=== PATIENT | female | born 1945 | race Caucasian/White ===

== ENCOUNTER 2017-01-04 09:13 | Outpatient (CLI) | payer MEDICARE, OTHER ==
--- NOTE | 2017-01-04 13:21 | BD ---
DEXA BONE DENSITY STUDY: History: Post-menopausal. Lumbar Spine: BMD (g/cm2) L1 0.923 T-Score: -0.6 L2 1.053 T-Score: 0.2 L3 1.043 T-Score: -0.4 L4 0.993 T-Score: -0.6 L1-L4 1.005 T-Score: -0.4 Femoral Neck: 0.638 T-Score: -1.9 Total Femur: 0.791 T-Score: -1.2 Impression: 1. Osteopenia of the left femoral neck and normal bone marrow density of the lumbar spine. 2. 10-year fracture risk from major osteoporotic fracture is 11%, hip fracture 1.9%. These fracture probabilities are calculated for an untreated patient. POS: OFF
--- NOTE | 2017-01-10 10:12 | MMO ---
BILATERAL SCREENING MAMMOGRAMS: Date: 01/04/17 Compared to outside mammogram studies dated 2016 and 2015, and studies from this institution dated 2 014. This patient's mammogram was interpreted with the assistance of computer-aided detection. FINDINGS: Predominantly fatty replacement. Scattered benign calcifications. Tiny, 3.0 mm, nodule in the product analyst ior mid left breast is stable. Recommend one year follow-up. IMPRESSION: BIRADS 2: Benign Finding(s) POS: JOVITA
--- OUTSIDE RECORDS SUMMARY | 2017-01-14 18:00 | XMS | Continuity of Care Document ---
:1945 Author Organization [facility] Care Team Providers Name Role Phone NOLOCAL, PRIMARY Primary Care Physician Unavailable Insurance Providers Payer Name Policy Number Subscriber Name Relationship MEDICARE [id number] BROOK[place]N RAMIREZ SELF/SAME PATIENT OTHER1 [id number] [employer] RAMIREZ SELF/SAME PATIENT Advance Directives Directive Response Recorded Date/Time Advance Directive? N 04/08/16 10:48am Living Will? N 04/08/16 10:48am Health Care Proxy? N 04/08/16 10:48am Healthcare Power of Canteen Operator? N 04/08/16 10:48am Is the patient an Organ Donor? N 04/08/16 10:32am Chief Complaint and Reason for Visit Reason for Visit COPD EXACERBATION Problems Active Medical Problems Problem Onset Date Recorded Date Status Hypoxemia Unknown 02/13/15 Active Pneumonia Unknown 02/13/15 Active COPD exacerbation Unknown 04/08/16 Active Medications Current Home Medications Medication Dose Units Route Directions Days/Qty Instructions Start Date ALBU 3MG/IPROT 3 ML NEB FOUR TIMES A 120 04/12/16 0.5MG/3ML (RESP DAY (0900) (DUONEB) 3 MG/5 MG NEB ASPIRIN (ASPIRIN 81 MG PO EVERY DAY @ 81 MG (LOW DOSE)) 0900 81 MG TAB Fluoxetine Hcl 20 MG PO EVERY DAY @ 30 (Pmdd) 0900 (Fluoxetine) 20 MG CAP Levofloxacin 750 MG PO EVERY DAY @ 7 Days 04/12/16 Hemihydrate 0900 (LEVAQUIN 750 MG TAB) 750 MG TAB Lisinopril 20 MG PO TWICE A DAY (ZESTRIL 20MG) 20 (0900; 2100) MG TAB Multiple Vitamin 1 TAB PO EVERY DAY @ (MULTI-VITAMIN 0900 TABLET) 1 TAB TAB Omeprazole 20 MG PO EVERY DAY @ 30 (PRILOSEC 20 MG 0900 CAP) 20 MG CAP PREDNISONE 40 MG PO EVERY DAY @ 8 Days 40 MG PO Q DAY X 02/17/15 (PREDNISONE 10 MG 0900 2 DAYS30 MG PO Q TAB) 10 MG TAB DAY X 2 DAYS20 MG PO Q DAY X 2 DAYS10 MG PO Q DAY X 2 DAYS PREDNISONE 10 MG PO EVERY DAY @ 7 Days 40 MG DAILY X 2 04/12/16 (PREDNISONE 10 MG 0900 DAYS20 MG DAILY X TAB) 10 MG TAB 2 DAYS10 MG DAILY X 2 DAYS5 MG DAILY X 1 DAY Past Home Medications Medication Directions Ordered Status Albu 3MG/Iprot 0.5MG/3ML (Resp (Duoneb) FOUR TIMES A DAY (0900) 02/17/15 Discontinued 3 Mg/5 Mg Neb Neb, 3 Ml Neb Levofloxacin Hemihydrate (Levaquin 750 EVERY DAY @ 0900 02/17/15 Discontinued Mg Tab) 750 Mg Tab Tab, 750 Mg Po Social History Problem Response Recorded Date Recreational drugs? N 04/08/16 Alcohol? N 04/08/16 Query Response Start Date Stop Date Smoking Status: Former Smoker Hospital Discharge Instructions Diagnosis: COPD Goal: IMPROVE BREATHING Intervention: BREATHING TREATMENTS, MEDICATIONS, ANTIBIOTICS Anticipated Discharge Date 04/12/16 Anticipated Discharge Time 1800 Plan of Care Discharge Date 04/12/16 Disposition HOME/SELF CARE Instructions/Education Provided DI for Chronic Obstructive Pulmonary Disease Forms Provided Patient Portal Logon Page Prescriptions See Medications Section Additional Instructions/Education F/U PCP IN 1 WEEK F/U DR. MAYERS IN 2 WEEKS Care Plan and Goals See Discharge Instructions section Functional Status Query Response Date Recorded WNL?+ Y April 12, 2016 9:00am Allergies, Adverse Reactions, Alerts No known allergies. Immunizations Name Date Given Type Flu vaccine this seaso Y Historical Estimated Date: 01/28/16 Historical Pnuemonia Vaccine last 5 years? Y Historical Estimated Date: 04/11/13 Historical Vital Signs Vital Reading Collection Date/Time Result Blood Pressure 04/12/16 4:29pm 138/69 Blood Pressure Source 04/12/16 4:00am Auto Cuff Patient Temperature 04/12/16 4:29pm 97.0 Temperature Source 04/12/16 4:00am Oral Respiratory Rate 04/12/16 4:29pm 18 Pulse Rate 04/12/16 4:29pm 78 Pulse Location 04/12/16 4:00am Monitor Bedside Pulse Oximetry 04/12/16 4:29pm 95 Height 04/08/16 10:48am 157.48 cm Height 04/08/16 10:48am 5 ft 2.00 in Weight 04/12/16 6:10am 64.155 kg Weight 04/12/16 6:10am 141 lb 7.00 oz Body Mass Index 04/08/16 10:48am 25.9 Results Laboratory Results Test Name Result Units Flags Reference Collection Result Comments Date/Time Date/Time White Blood 9.7 K/uL 4.8-10.8 04/11/16 04/11/16 Count 4:50am 5:51am Red Blood Count 4.40 M/uL 3.70-5.40 04/11/16 04/11/16 4:50am 5:51am Hemoglobin 14.1 g/dL 12.0-16.0 04/11/16 04/11/16 4:50am 5:51am Hematocrit 42.4 % 37.0-47.0 04/11/16 04/11/16 4:50am 5:51am Mean Corpuscular 96.4 fl 80.0-100.0 04/11/16 04/11/16 Volume 4:50am 5:51am Mean Corpuscular 32.1 pg H 27.0-31.0 04/11/16 04/11/16 Hemoglobin 4:50am 5:51am Mean Corpuscular 33.3 g/dL 32.0-36.0 04/11/16 04/11/16 Hgb Concent Diff 4:50am 5:51am Red Cell 13.4 % 11.5-14.5 04/11/16 04/11/16 Distribution 4:50am 5:51am Width Platelet Count 136 K/uL 130-400 04/11/16 04/11/16 4:50am 5:51am Mean Platelet 10.7 fl 04/11/16 04/11/16 Volume 4:50am 5:51am Granulocytes (%) 93.9 % H 50.0-75.0 04/11/16 04/11/16 4:50am 5:51am Lymphocytes % 3.6 % L 20.0-40.0 04/11/16 04/11/16 4:50am 5:51am Monocytes % 2.5 % 0.0-15.0 04/11/16 04/11/16 4:50am 5:51am Eosinophils % 0.0 % 0.0-10.0 04/11/16 04/11/16 4:50am 5:51am Basophils % 0.0 % 0.0-2.0 04/11/16 04/11/16 4:50am 5:51am Granulocytes # 9.1 K/uL H 1.8-6.4 04/11/16 04/11/16 4:50am 5:51am Lymphocytes # 0.3 K/uL L 1.2-3.6 04/11/16 04/11/16 4:50am 5:51am Monocytes # 0.2 K/uL L 0.3-0.9 04/11/16 04/11/16 4:50am 5:51am Eosinophils # 0.0 K/ul 0.0-0.5 04/11/16 04/11/16 4:50am 5:51am BASO # 0.0 K/uL 0.0-0.2 04/11/16 04/11/16 4:50am 5:51am Manual YES 04/11/16 04/11/16 Differential 4:50am 5:51am Segmented 89 % H 42-75 04/11/16 04/11/16 Neutrophils 4:50am 9:57am Band Neutrophils 1 % L 2-10 04/11/16 04/11/16 4:50am 9:57am Lymphocytes 6 % L 20-51 04/11/16 04/11/16 4:50am 9:57am Monocytes 4 % 2-9 04/11/16 04/11/16 4:50am 9:57am Platelet ADEQUATE ADEQUATE 04/11/16 04/11/16 Estimate 4:50am 9:57am Platelet LARGE NORMAL 04/11/16 04/11/16 Morphology PLATELETS 4:50am 9:57am SEEN Normal RBC SEE NORMAL 04/11/16 04/11/16 Morphology MORPHOLOGY 4:50am 9:57am Hypochromasia 1+ A NONE 04/11/16 04/11/16 4:50am 9:57am Poikilocytosis 1+ A NONE 04/11/16 04/11/16 4:50am 9:57am Anisocytosis 1+ A NONE 04/11/16 04/11/16 4:50am 9:57am Sodium Level 134 mmol/L L 135-144 04/11/16 04/11/16 4:50am 5:31am Potassium Level 4.8 mmol/L 3.5-5.1 04/11/16 04/11/16 4:50am 5:31am Chloride Level 97 mmol/L L 101-111 04/11/16 04/11/16 4:50am 5:31am Carbon Dioxide 29 mmol/L 22-32 04/11/16 04/11/16 Level 4:50am 5:31am Anion Gap 12.8 mmol/L 10-20 04/11/16 04/11/16 4:50am 5:31am Glucose Level 250 mg/dL H 70-109 04/11/16 04/11/16 Random glucose > 200 mg/dL in a patient with typical 4:50am 5:31am symptoms of diabetes (polydipsia, polyuria and unexplained weight loss) satisfies ADA criteria for diabetes mellitus if confirmed by repeat testing on another day. Confirmation is unnecessary when acute metabolic decompensation with hyperglycemia is manifested. Reference: Report of the Expert Committee on the Diagnosis and Classification of Diabetes Mellitus. Diabetes Care, 20:1183, 1997. Blood Urea 30 mg/dL H 8-26 04/11/16 04/11/16 Nitrogen 4:50am 5:31am Creatinine 0.80 mg/dL 0.44-1.00 04/11/16 04/11/16 4:50am 5:31am EGFR Note > 60.0 04/11/16 04/11/16 eGFR (Estimated Glomerular Filtration Rate) 4:50am 5:31am Reference Range: >60 ml/min/1.73m eGFR calculation value obtained using the [facility] Quadratic (MCQ) equation. The reportable reference range is recommended to be greater than 60 ml/min/1.73m. This is an estimation of the patient's GFR and clinical correlation is recommended. This eGFR calculation does not account for race. This result may differ from other equations available. Calcium Level 10.5 mg/dL H 8.9-10.3 04/11/16 04/11/16 4:50am 5:31am Atypical 1 H NONE 04/09/16 04/09/16 Lymphocytes 5:12am 6:18am Albumin 4.2 g/dL 3.5-5.0 04/08/16 04/08/16 12:10pm 12:39pm Total Bilirubin 0.7 mg/dL 0.3-1.2 04/08/16 04/08/16 12:10pm 12:39pm Alkaline 45 IU/L 32-91 04/08/16 04/08/16 Phosphatase 12:10pm 12:39pm Total Protein 6.8 g/dL 6.5-8.1 04/08/16 04/08/16 12:10pm 12:39pm Alanine 23 IU/L 7-55 04/08/16 04/08/16 Aminotransferase 12:10pm 12:39pm (ALT/SGPT) Aspartate Amino 21 IU/L 15-41 04/08/16 04/08/16 Transf 12:10pm 12:39pm (AST/SGOT) Globulin 2.6 g/dL 2.3-3.5 04/08/16 04/08/16 12:10pm 12:39pm Albumin/Globulin 1.6 1.2-2.2 04/08/16 04/08/16 Ratio 12:10pm 12:39pm Procedures No Known History of Procedures. Encounters Encounter Location Arrival/Admit Date Discharge/Depart Date Attending Provider Discharged [place] 04/11/16 1:24pm 04/12/16 5:31pJAUN Gerardo [facility] Discharged [place] 04/11/16 1:24pm 04/12/16 5:31pJAUN Gerardo [facility] Encounter Diagnosis Onset Date Hypoxemia Pneumonia COPD exacerbation
== END 2017-01-04 09:14 | disposition home or self-care (01) ==
LOC: MAMMO 09:13
PROVIDERS: ATTEND Internal Medicine Medical Oncology
DX: Z12.31 Encounter for screening mammogram for malignant neoplasm of breast (principal); C21.1 Malignant neoplasm of anal canal; N95.9 Unspecified menopausal and perimenopausal disorder; M85.88 Other specified disorders of bone density and structure, other site
CPT/HCPCS: 77080; G0202; 77067

== ENCOUNTER 2018-10-02 11:02 | Outpatient (CLI) | payer MEDICARE, OTHER ==
--- NOTE | 2018-10-02 11:59 | CT ---
Exam: Lumbar spine CT scan without IV contrast: HISTORY: Spondylolisthesis, lumbar region FINDINGS: Generalized disc desiccation changes and ligament and facet hypertrophic changes. Small nonobstructing left renal calculus. Small hiatal hernia. T12-L1: No significant stenosis. L1-L2: Moderate lateral recess stenosis and mild bilateral foraminal stenosis. L2-L3: Mild central canal and moderate bilateral recess stenosis and bilateral foraminal stenosis. L3-L4: Very severe disc bulging with moderate central canal and severe bilateral recess stenosis and moderate to severe bilateral foraminal stenosis. L4-L5: Severe central canal and lateral recess stenosis and bilateral foraminal stenosis. L5-S1: Minimal grade 1, approximately 0.4 cm anterolisthesis of L5 on S1. Severe central canal, lateral recess, and bilateral foraminal stenosis. Approximately 1.1 x 2.0 x 2.3 cm diameter right facet joint synovial cyst resulting in considerable c ompression of the thecal sac displacing it to the left side. 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 IMPRESSION: Nonobstructing left renal calculus. Multilevel variable severity canal, lateral recess, and foraminal stenosis up to severe as above. Grade 1 anterolisthesis of L5 on S1. Large right-sided L5-S1 facet joint synovial cyst with mass effect on the thecal sac. Other findings as above.
== END 2018-10-02 11:03 | disposition home or self-care (01) ==
LOC: CT 11:02
PROVIDERS: ATTEND Specialist
DX: M43.16 Spondylolisthesis, lumbar region (principal); M43.17 Spondylolisthesis, lumbosacral region; N20.0 Calculus of kidney; M48.02 Spinal stenosis, cervical region; M48.07 Spinal stenosis, lumbosacral region; M71.38 Other bursal cyst, other site
CPT/HCPCS: 72131

== ENCOUNTER 2019-03-13 08:52 | Outpatient (CLI) | payer MEDICARE, OTHER ==
--- NOTE | 2019-03-13 09:59 | MMO ---
Bilateral MAMMO Bilat Screen [facility]. CLINICAL HISTORY: Patient is 73 years old and is seen for screening. The patient has the following family history of breast cancer: maternal aunt and cousin female. The patient has a history of other cancer in 2013. VIEWS: The views performed were: bilateral craniocaudal with tomosynthesis and bilateral mediolateral oblique with tomosynthesis. FILMS COMPARED: The present examination has been compared to prior imaging studies performed at [facility] on 06/27/2013, 09/24/2014, 10/15/2015 and 01/04/2017. This study has been interpreted with the assistance of computer-aided detection. MAMMOGRAM FINDINGS: There are scattered fibroglandular densities. There are calcifications seen in both breasts. There are no suspicious masses, suspicious calcifications, or new areas of architectural distortion. IMPRESSION: THERE IS NO MAMMOGRAPHIC EVIDENCE OF MALIGNANCY. A ROUTINE FOLLOW-UP MAMMOGRAM IN 1 YEAR IS RECOMMENDED. THE RESULTS OF THIS EXAM WERE SENT TO THE PATIENT. ACR BI-RADS Category 2 - Benign finding MAMMOGRAPHY NOTE: 1. A negative mammogram report should not delay a biopsy if a dominant of clinically suspicious mass is present. 2. Approximately 10% to 15% of breast cancers are not detected by mammography. 3. Adenosis and dense breasts may obscure an underlying neoplasm. Reported by: SYDNIE KUNZ MD Electonically Signed: [id number]
--- NOTE | 2019-03-13 11:06 | BD ---
DEXA BONE DENSITY STUDY: INDICATIONS: History of osteoporosis screening and menopausal state. COMPARISON: 01/04/2017 LUMBAR SPINE BMD (g/cm2) T-SCORE Z-SCORE L1 0.914 -0.7 1.3 L2 1.017 -0.1 2.1 L3 1.065 -0.2 2.1 L4 1.011 -0.5 1.9 L1-L4 1.005 -0.4 1.8 LEFT FEMORAL NECK 0.693 -1.4 0.5 LEFT TOTAL HIP 0.795 -1.2 0.4 The bone mineral density of the left total hip region is relatively stable to the prior examination. The bone mineral density has improved 0.6% from the baseline in 2017. The FRAX-WHO Fracture Risk Assessment tool estimates a 10 year fracture for this patient for a major osteoporotic fracture at 10% and for a hip fracture at 1.6%. IMPRESSION: Baseline WHO criteria. The patient's bone mineral density is osteopenic. The patient has a moderate r isk for fracture. The bone mineral density has been relatively stable since 2017. POS: OFF
== END 2019-03-13 08:53 | disposition home or self-care (01) ==
LOC: BICMAMMO 08:52
PROVIDERS: ATTEND Internal Medicine Medical Oncology
DX: Z12.31 Encounter for screening mammogram for malignant neoplasm of breast (principal); M85.80 Other specified disorders of bone density and structure, unspecified site; Z78.0 Asymptomatic menopausal state; Z85.89 Personal history of malignant neoplasm of other organs and systems; Z80.3 Family history of malignant neoplasm of breast
CPT/HCPCS: 77063; 77067; 77080

== ENCOUNTER 2019-04-02 08:02 | Outpatient (CLI) | payer MEDICARE, OTHER ==
[2019-04-02 13:54] LABS: Hemoglobin 14.3 g/dL (12.0-16.0); Mean Corpuscular HGB CONC 33.2 g/dL (32.0-36.0); Mean Corpuscular Hemoglobin 32.4 pg (27.0-31.0); Mean Corpuscular Volume 97.6 fL (78.0-98.0); Mean Platelet Volume 10.7 fL (7.4-10.4); Platelet Count 162 thou/uL (130-400); RBC Distribution Width 12.2 % (11.5-14.5); White Blood Cell (WBC) Count 5.1 thou/uL (4.8-10.8)
[2019-04-02 14:10] LABS: INR-International Normal Ratio 0.9; Prothrombin Time 12.6 SEC (12.0-14.7)
--- NOTE | 2019-04-03 11:10 | EKG ---
Test Reason : Blood Pressure : / mmHG Vent. Rate : 072 BPM Atrial Rate : 072 BPM P-R Int : 168 ms QRS Dur : 084 ms QT Int : 376 ms P-R-T Axes : 075 044 069 degrees QTc Int : 411 ms Normal sinus rhythm Septal infarct , age undetermined Abnormal ECG When compared with ECG of 01-JUL-2014 14:53, No significant change was found Confirmed by DR. Cuba FREY ([id number]) on 04/03/2019 11:09:49 AM Referred By: MARU Confirmed By:DR. Cuba FREY
== END 2019-04-02 08:03 | disposition home or self-care (01) ==
LOC: LABBT 08:02
PROVIDERS: ATTEND Neurological Surgery
DX: Z01.818 Encounter for other preprocedural examination (principal); M50.022 Cervical disc disorder at C5-C6 level with myelopathy
CPT/HCPCS: 85027; 85610; 85730; 93005; 93010

== ENCOUNTER 2019-04-05 10:06 | Observation (INO) | payer MEDICARE, OTHER ==
--- NOTE | 2019-04-05 09:15 | HP ---
REASON FOR CONSULTATION: "I'm here to have my neck surgery." HISTORY OF PRESENT ILLNESS: Amparo Dash is a pleasant 73-year-old woman, who was referred to us in December for both back and neck symptoms. During that evaluation, she noted hand numbness and balance difficulty. MR imaging suggested cord compression at C5-C6 and C6-C7 and we have recommended an operation to prevent her myelopathy from worsening. She presents today for that surgery. PAST MEDICAL HISTORY: Hypertension, anal cancer, depression, COPD/emphysema, and macular degeneration. PAST SURGICAL HISTORY: Hysterectomy, cerebral aneurysm coiling, cholecystectomy, anal cancer surgery, and excision of neck mass. MEDICATIONS: 1. Fluoxetine. 2. Lisinopril. 3. Caballo. 4. Atorvastatin. 5. Budesonide. 6. Omeprazole. 7. Tramadol. ALLERGIES: NO KNOWN DRUG ALLERGIES. FAMILY HISTORY: Ms. Dash's father had . He had Alzheimer's and diabetes. Her mother and had cancer. There is a family history of heart disease in her paternal side. SOCIAL HISTORY: Ms. Dash has been a smoker in the past, but tells us that she has quit prior to this operation. She is currently retired, lives with her spouse. She denies alcohol and drug use. REVIEW OF SYSTEMS: Otherwise, negative. PHYSICAL EXAMINATION: NEUROLOGIC: Ms. Dash is 5 feet 2 inches tall. She weighs approximately 130 pounds. Ms. Dash is awake and alert. She has no obvious cognitive deficit. Her speech is fluent and without dysarthria or dysphasia. There is very mild hand intrinsic weakness bilaterally. There is no significant lower extremity weakness. Her sensory examination shows a nondermatomal distribution change in sensation on both hands. There is some L5 and S1 loss of sensation on the right side in the lower extremity. The reflexes are brisk at the arms, normal at the knees, and absent at the right ankle. The toes are equivocal. Gait examination reveals that tandem gait is nearly impossible. ADMISSION FINDINGS AND TEST RESULTS: MR imaging suggest cord compression at C5-C6 and C6-C7. Flexion-extension x-rays show some upper cervical motion that could be described as mild stairstepping. 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 Ms. Dash is here for surgical intervention. She tells that she has quit smoking. We are planning ACDF. Informed Consent: I discussed indications, risks, benefits, expected outcomes, and alternatives to ACDF. The risks we discussed in clinic included, but were not limited to, bleeding, infection, CSF leak, nerve damage, spinal cord injury, tracheal injury, esophageal injury, carotid artery injury, jugular vein injury, permanent dysphagia, cardiopulmonary complications of anesthesia, wheelchair dependence, ventilator dependence, and . Future risks include instrumentation, failure and need for surgery at adjacent segments. She understands all the risks and wants to proceed. Job ID: [id number]
[~2019-04-05 10:06] MED LIST: Dexamethasone 20 MG/5 ML VIAL ONE; Esmolol 100 MG/10 ML VIAL ONE; Glycopyrrolate 0.2 MG/ML 5 ML SYRINGE ONE; Lidocaine 1% PF 5 ML VIAL ONE; Metoclopramide HCl 10 MG/2 ML VIAL ONE; Ondansetron PF 4 MG/2 ML Vial ONE; PHENYLEPHRINE-NS 100 MCG/ML 10 ML SYRINGE ONE; PROPOFOL 200 MG/20 ML VIAL ONE; Rocuronium Bromide 10 MG/ML (10ML VIAL) ONE
[2019-04-05] MEDS ORDERED: Sodium Chloride 0.9% 0 ML ONE (11:36)
[2019-04-05] MEDS ORDERED: Thrombin 5000 UNITS/5 ML VIAL ONE (11:36)
[2019-04-05] MEDS ORDERED: Fentanyl 100 MCG/2 ML VIAL ONE ×4 (12:27→17:26)
[2019-04-05] MEDS ORDERED: Promethazine HCl 12.5 MG SUPP PR PRN (16:37)
[2019-04-05] MEDS ORDERED: Promethazine HCl 25 MG/ML VIAL IM PRN ×2 (16:37→16:56)
[2019-04-05] MEDS ORDERED: Acetaminophen 325 MG TAB PO PRN (16:37)
[2019-04-05] MEDS ORDERED: Promethazine 25 MG TAB PO PRN (16:37)
[2019-04-05] MEDS ORDERED: diphenhydrAMINE 25 MG CAP PO PRN (16:37)
[2019-04-05] MEDS ORDERED: Ondansetron PF 4 MG/2 ML Vial IVP PRN (16:37)
[2019-04-05] MEDS ORDERED: traMADol HCl 50 MG TAB PO PRN ×2 (16:37)
[2019-04-05] MEDS ORDERED: diphenhydrAMINE 50 MG/ML VIAL IVP PRN (16:37)
[2019-04-05] MEDS ORDERED: Acetaminophen/Codeine 30-300mg Tablet PO PRN ×2 (16:37)
[2019-04-05] MEDS ORDERED: Acetaminophen 650 MG Suppository PR PRN (16:37)
[2019-04-05] MEDS ORDERED: tiZANidine HCl 4 MG TAB PO PRN (16:37)
[2019-04-05] MEDS ORDERED: Bisacodyl 10 MG SUPP PR PRN (16:37)
[2019-04-05] MEDS ORDERED: Promethazine HCl 25 MG/ML VIAL SLOW IVP PRN (16:56)
[2019-04-05] MEDS ORDERED: Ondansetron HCl/PF 4 MG/2 ML Vial IVP PRN (16:56)
[2019-04-05] MEDS ORDERED: Scopolamine 1.5 mg/72 hour Patch TD SCH (17:00)
[2019-04-05 18:32] VITALS: BMI 32.1
[2019-04-05] MEDS: CEFAZOLIN 2 GM in Premix Bag 1 BAG IVPB SCH (19:40)
[2019-04-05] MEDS: Sodium Chloride 0.9% 1,000 ML IV SCH (19:40)
[2019-04-05] MEDS: Arformoterol 15 MCG/2 ML NEB NEB SCH (20:06)
[2019-04-05] MEDS: Budesonide 0.5 MG/2 ML NEB NEB SCH (20:07)
--- NOTE | 2019-04-05 21:15 | OP ---
DATE OF PROCEDURE: 04/05/2019 THEATRE DIRECTOR: None. PREOPERATIVE INDICATION: Prevent neurological deterioration. PREOPERATIVE DIAGNOSIS: Cervical intervertebral disk disease with cord compression and myelopathy at C5-C6 and C6-C7. POSTOPERATIVE DIAGNOSIS: Cervical intervertebral disk disease with cord compression and myelopathy at C5-C6 and C6-C7. PROCEDURES PERFORMED: Anterior cervical diskectomy, intervertebral arthrodesis and placement of intervertebral biomechanical device, anterior cervical plating at C5-C6 and C6-C7, local morselized autograft, morselized allograft, operating microscope. PREOPERATIVE MEDICATION: Ancef 2 g IV. DRAIN: Zero. DRAIN TYPE: None. DESCRIPTION OF PROCEDURE: The patient was brought to the operating room. General endotracheal anesthesia was induced. The patient was carefully positioned on the operating table supine with her head supported by a donut-shaped headrest. A lateral fluoro radiograph was used to plan our incision. The right side of the neck was sterilely prepped and draped. We opened with a 10 blade knife and we controlled bleeding with bipolar cautery. We dissected sharply to the platysma and cut this muscle in line with our incision. We continued our dissection medial to the sternocleidomastoid and lateral to the trachea and esophagus. We arrived to the prevertebral space. We placed a marker at C5-C6 and took a lateral fluoro radiograph to identify the levels upon which we were operating. We then elevated the longus colli muscles off the anterior surface of C5, C6 and C7, and placed a self-retaining retractor beneath them. Distraction pins were placed at C5 and C7, and we distracted across both of the intervening interspaces. We incised the interspaces with a 15 blade knife and removed disk contents using curettes and rongeurs. As we approached the posterior margin of the disk space, the operative microscope was brought into the field. Under microscopic magnification and using microsurgical techniques, we removed the remainder of the intervertebral disk. We accessed the ventral epidural space with a micro curette and using Kerrison rongeurs, we removed large posterior osteophytes and posterior longitudinal ligament across the entire interspace from one neural foramen all the way to the other, decompressing the dura throughout. This was done at C5-C6 and again at C6-C7. We turned our attention to arthrodesis. With the curettes, we prepared the endplates for grafting by removing the cartilaginous cap. A bone rasp was used to measure the height of the interspace to 7 mm at C5-C6 and C6-C7. Two separate 7 mm PEEK grafts were brought into the field. Posterior osteophytes removed during decompression were cleaned of soft tissue attachments, morcellized, and added into demineralized bone matrix as part of our fusion substrate. The substrate was packed into the center of the PEEK grafts and those were advanced into the respective interspaces under radiographic guidance to the appropriate depth. Distraction pins were removed and the operative microscope taken out of the field. A 31 mm anterior cervical plate was brought into the field. We drilled highway patrol pilot holes through the plate into the vertebral bodies at C5, C6, and C7, and we affixed the plate using 14 mm screws. Fixed angle screws were used at C7 and variable angle screws at C5 and C6. We engaged the locking mechanism over each of the 6 screws. AP and lateral fluoro radiographs confirmed adequate positioning of our instrumentation. We irrigated with bacitracin irrigation. We closed the wound in anatomical layers. We applied a sterile dressing. This was a clean case, no contamination. Job ID: [id number]
[2019-04-06] MEDS: CEFAZOLIN 2 GM in Premix Bag 1 BAG IVPB SCH (02:22)
[2019-04-06] MEDS: Sodium Chloride 0.9% 1,000 ML IV SCH (06:25)
[2019-04-06] MEDS: Arformoterol 15 MCG/2 ML NEB NEB SCH (06:43)
[2019-04-06] MEDS: Budesonide 0.5 MG/2 ML NEB NEB SCH (06:43)
--- NOTE | 2019-04-06 07:51 | PRG ---
DATE OF SERVICE: 04/06/2019 Ms. Dash is 1 day out from a two-level ACDF for cord compression and myelopathy. Her arms and hands feel better than they did before surgery, and interestingly, the leg pain she had is not there this morning. Overnight, her vitals have been relatively stable. Her blood pressures this morning have been in the 110s to 130s. Last night, they were in the 150s to 170s. Her oxygen levels are a bit low, but she does have a history of COPD and takes home bronchodilators. Those are being administered currently , and she is not short of breath. NEUROLOGIC: Her neurological function is stable. Ms. Dash, when she is independent for activities of daily living, can be discharged. I have plans to call in medication for pain control to her local pharmacy and the nursing staff can do that or they can call our office to do the same. Followup arrangements have been made. We went over home going wound care. We went over collar use. We went over activity restrictions. She verbalized her understanding. I will see her in 2 weeks' time. Job ID: [id number] [id number]
[2019-04-06] MEDS ORDERED: Cyanocobalamin (Vitamin B-12) 1,000 MCG TAB PO SCH (09:00)
[2019-04-06] MEDS ORDERED: FLUoxetine HCl 20 MG CAP PO SCH (09:00)
[2019-04-06] MEDS ORDERED: Lisinopril 10 MG TAB PO SCH (09:00)
[2019-04-06 11:27] VITALS: BP 120/75; TEMP 98.1
[2019-04-07] MEDS ORDERED: Heparin 5,000 UNITS/ML VIAL SC SCH (09:00)
== END 2019-04-06 12:50 | disposition home or self-care (01) ==
LOC: SDC 10:06 → SURG A 18:25
PROVIDERS: ADMIT Neurological Surgery; ATTEND Neurological Surgery
PROC: 0RG20A0 Fusion of 2 or more Cervical Vertebral Joints with Interbody Fusion Device, Anterior Approach, Anterior Column, Open Approach (ICD-10-PCS; principal; 2019-04-05)
PROC: 0RT30ZZ Resection of Cervical Vertebral Disc, Open Approach (ICD-10-PCS; 2019-04-05)
DX: M50.022 Cervical disc disorder at C5-C6 level with myelopathy (principal); M47.12 Other spondylosis with myelopathy, cervical region; I10 Essential (primary) hypertension; K21.9 Gastro-esophageal reflux disease without esophagitis; M19.90 Unspecified osteoarthritis, unspecified site; F32.9 Major depressive disorder, single episode, unspecified; J43.9 Emphysema, unspecified; Z87.891 Personal history of nicotine dependence; Z79.899 Other long term (current) drug therapy; Z98.890 Other specified postprocedural states
CPT/HCPCS: 20930; 20936; 22551; 22552; 22845; 22853 ×2; 76000; 94640 ×3; 96365; 96372; 96376; C1713 ×2; C1776; G0378 ×2; J0690; J1100; J2001; J2405; J2550; J2704; J2765; J3010; J3490; J7626

== ENCOUNTER 2019-06-15 09:10 | Inpatient (IN) | payer MEDICARE, OTHER ==
--- NOTE | 2019-06-13 18:57 | HP ---
DATE OF SURGERY: 06/15/2019 for laminectomy synovial cyst, case #[id number]. CHIEF COMPLAINT: "I'm here for back surgery." HISTORY OF PRESENT ILLNESS: Ms. Dash is a 74-year-old female with lower back pain and right leg pain, right leg greater than left. She states that her pain in her lower back is terrible and her right leg pain follows the L5 nerve root. This is severely affecting her quality of life and she is not getting any relief from therapy, medications, or prior injections. PAST MEDICAL HISTORY: Depression, mental disorder, lung disease. PAST SURGICAL HISTORY: Cholecystectomy in 2013. HOSPITALIZATION: Brain aneurysm in 1993, gallbladder in 2013. FAMILY HISTORY: Father is , history of diabetes, hypertension, heart disease. Mother , diabetes, hypertension, stroke, cancer. One child alive with diabetes. SOCIAL HISTORY: Says here and now she does smoke cigarettes. No illicit drug use. No alcohol use. Vitals: Height 5 feet and 2 inches, Weight 130. MEDICATIONS: Currently taking, 1. Lisinopril 10 mg. 2. Fluoxetine 20 mg. 3. Atorvastatin 10 mg. 4. Brovana 15 mcg/2 mL. 5. Budesonide 0.5 mg. ALLERGIES: NO KNOWN DRUG ALLERGIES. REVIEW OF SYSTEMS: CONSTITUTIONAL: Denies fever or chills. ENT: Denies change of vision or hearing. CARDIAC: Denies chest pain, shortness of breath, or diaphoresis. PULMONARY: Denies shortness of breath, cough, or hemoptysis. GI: Denies fecal incontinence, abdominal pain, nausea, vomiting, diarrhea, or change in stool formation and consistency. : Denies urinary incontinence, trouble with urination, frequency of urination , bloody urine. SKIN: Denies skin rash, bruising, bleeding, or skin masses. MUSCULOSKELETAL: As per history of present illness. NEUROLOGIC: As per history of present illness. PSYCHOLOGIC: Denies anxiety, depression, behavior changes, or crying. PHYSICAL EXAMINATION: HEENT: Pupils are equal. NECK: Normal, soft and supple. No masses are noted. ROM is intact and nonpainful. NEUROLOGIC: Awake, alert, and oriented x3. Memory, attention, fund of knowledge, and language are normal. Cranial nerves are normal, 2 through 12 grossly intact. Gait and station, tandem gait is off balance. Motor exam: moderate EHL weakness on the right. Sensory exam: loss of L5 sensation R>L. Reflex exam: knees symmetric, ankles absent, toes equivocal. IMAGING STUDIES: MRI of the L-spine, lateral recess stenosis at L4-L5 and listhesis with stenosis at L5-S1 that gets worse on standing. Large synovial cyst right side compression, S1 root. ASSESSMENT: Acquired spondylolisthesis of the lumbar region. PLAN: Spondylolisthesis of the lumbar region laminectomy with synovial cyst removal. Anesthesia clearance. INFORMED CONSENT: We discussed the indications, risks, benefits, alternatives, and expected results from surgery. The risks discussed included, but were not limited to, bleeding, infection, CSF leak, nerve damage, weakness, incontinence, cauda equina, arachnoiditis, paralysis, ventilator dependency, wheelchair dependency, loss of vision, cardiopulmonary complications of anesthesia, or . Long-term complications discussed included, but were not limited to spinal instability and future surgery. She understands the risk and is willing to proceed with surgery. Job ID: [id number] [facility]
[2019-06-14 10:36] VITALS: BMI 23.8
[2019-08-10] MEDS ORDERED: Fentanyl 100 MCG/2 ML VIAL ONE ×3 (06:23→12:46)
[2019-08-10] MEDS ORDERED: EPINEPHrine 1 MG/ML AMP ONE (06:30)
[2019-08-10] MEDS ORDERED: Thrombin 5000 UNITS/5 ML VIAL ONE (06:30)
[2019-08-10] MEDS ORDERED: Bupivacaine PF 0.5% 30 ML VIAL ONE (06:30)
[2019-08-10] MEDS ORDERED: EPHEDRINE 25 MG/5 ML SYRINGE ONE ×2 (08:34→12:11)
[2019-08-10] MEDS ORDERED: PHENYLEPHRINE-NS 100 MCG/ML 10 ML SYRINGE ONE ×2 (08:52→12:11)
[2019-08-10] MEDS ORDERED: Phenylephrine 10 MG/ML VIAL ONE ×2 (08:52→10:37)
[2019-08-10] MEDS ORDERED: Albumin 5% 500 ML ONE (10:20)
[2019-08-10] MEDS ORDERED: Ondansetron HCl/PF 4 MG/2 ML Vial IVP PRN (11:58)
[2019-08-10] MEDS ORDERED: Promethazine HCl 25 MG/ML VIAL IM PRN (11:58)
[2019-08-10] MEDS ORDERED: Promethazine HCl 25 MG/ML VIAL SLOW IVP PRN (11:58)
[2019-08-10] MEDS ORDERED: HYDROmorphone 2 MG/ML VIAL SLOW IVP PRN (11:58)
[2019-08-10] MEDS ORDERED: Meperidine HCl/PF 25 MG/ML VIAL SLOW IVP PRN (11:58)
[2019-08-10] MEDS ORDERED: Ketorolac Tromethamine 30 MG/ML VIAL IVP PRN (11:58)
[2019-08-10] MEDS ORDERED: Ketorolac Tromethamine 30 MG/ML VIAL ONE (12:11)
[2019-08-10] MEDS ORDERED: PROPOFOL 200 MG/20 ML VIAL ONE (12:11)
[2019-08-10] MEDS ORDERED: Glycopyrrolate 0.2 MG/ML 5 ML SYRINGE ONE (12:11)
[2019-08-10] MEDS ORDERED: Ondansetron PF 4 MG/2 ML Vial ONE (12:11)
[2019-08-10] MEDS ORDERED: Rocuronium Bromide 10 MG/ML (10ML VIAL) ONE (12:11)
[2019-08-10] MEDS ORDERED: Lidocaine 1% PF 5 ML VIAL ONE (12:11)
[2019-08-10] MEDS ORDERED: Dexamethasone 20 MG/5 ML VIAL ONE (12:11)
[2019-08-10] MEDS ORDERED: Esmolol 100 MG/10 ML VIAL ONE (12:11)
[2019-08-10] MEDS ORDERED: Prochlorperazine 10 MG/2 ML VIAL IM PRN (12:26)
[2019-08-10] MEDS ORDERED: Promethazine 25 MG TAB PO PRN (12:26)
[2019-08-10] MEDS ORDERED: traMADol HCl 50 MG TAB PO PRN (12:26)
[2019-08-10] MEDS ORDERED: Mag-Al 1200 mg/1200 mg/30 ML UDCUP PO PRN (12:26)
[2019-08-10] MEDS ORDERED: diphenhydrAMINE 25 MG CAP PO PRN (12:26)
[2019-08-10] MEDS ORDERED: Bisacodyl 10 MG SUPP PR PRN (12:26)
[2019-08-10] MEDS: CEFAZOLIN 2 GM in Premix Bag 1 BAG IVPB SCH ×2 (15:29→21:46)
[2019-08-10] MEDS: Sodium Chloride 0.9% 1,000 ML IV SCH ×2 (15:29→21:46)
[2019-08-10] MEDS: Scopolamine 1.5 mg/72 hour Patch TD SCH (15:30)
[2019-08-10] MEDS: Morphine 2 MG/ML SYRINGE SLOW IVP PRN ×2 (15:31→21:48)
--- NOTE | 2019-08-10 18:26 | OP ---
DATE OF PROCEDURE: 08/10/2019 [employer]IC HELPER: Donald Wilson PA-C PREOPERATIVE INDICATION: Treat pain, prevent neurological deterioration. 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 OPERATIVE PROCEDURE: Decompressive laminectomy, medial facetectomy, foraminotomy at L4-L5 and L5-S1; removal of synovial cyst, L5-S1; complete facetectomy, L5-S1 right side; transforaminal lumbar interbody arthrodesis L5-S1; placement of intervertebral biomechanical device, L5-S1; pedicle screw and noe instrumentation, L5-S1; posterolateral arthrodesis, L5-S1; local morselized autograft, morselized allograft. PREOPERATIVE MEDICATIONS: Ancef 2 g IV. DRAIN NUMBER: One. DRAIN TYPE: 10-[place] Brian. DESCRIPTION OF PROCEDURE: The patient was brought to the operating room. General endotracheal anesthesia was induced. The patient was positioned prone on the Michelet frame with appropriate padding for the chest and hips. A lateral fluoro radiograph was used to plan our incision. The lumbar skin was sterilely prepped and draped. We opened with a 10 blade knife and controlled bleeding with bipolar and monopolar cautery. We used monopolar cautery to dissect through subcutaneous tissues to separate dorsal fascia. We incised the fascia in the midline and reflected the paraspinal muscles off the spinous process and lamina of L4, L5, and S1. A lateral fluoro radiograph confirmed lumbar spine which we were operating. We then used an Adson rongeur to remove top of the spinous process of the sacrum of the L5 and L4 spinous processes. Kerrison rongeurs were used to fashion a laminectomy down the midline. We widened our laminectomy defect. At L4-5, we had to perform medial facetectomies to decompress the lateral recesses. A Salazar ball probe was passed out the L4 and L5 nerve root foramina with the nerves. These nerves were decompressed by wide foraminotomies. At L5-S1 on the right side, there was a very large synovial cyst from the facet joint. This did cause significant pressure in the dura and had debris removed carefully because of its adherence to the dura itself. We dissected circumferentially around it and finally rolled it off the dura. We amputated its connection to the facet joint and took down the field. We then performed a medial facetectomy at L5-S1 bilaterally to decompress the S1 nerve roots. We performed a complete facetectomy on the right at L5-S1 to gain access to the intervertebral space. Through the facetectomy, we incised the disk space and we removed disk contents using curettes and rongeurs. We used rectangular-shaped bone rasp to measure the height of the interspace to 9 mm. A 9 mm PEEK intervertebral graft was brought into the field. Laminectomy bone was cleaned of all soft tissue attachments morselized and added to demineralized bone matrix to form our fusion substrate. The substrate was packed in the PEEK graft, which was advanced into the interspace under radiographic guidance to the appropriate depth. We turned our attention to pedicle screw instrumentation. Using bony anatomic landmarks, palpation of the medial portion of the pedicles, and a lateral fluoro radiograph as our guide, which was entry points for L5 and S1 pedicle screws bilaterally. We drilled out our entry point and used a bone awl to create our trajectories to the pedicles into the vertebral bodies. We tapped each trajectory and probed the trajectories and found a completely encased in bone. We placed 6.5 mm diameter screws at L5 and S1 bilaterally. We brought rods into the benson and dropped them into the screw heads. We tightened caps over the rods using gentle compression across the lumbosacral interspace to keep our interbody graft in place. Using a torque-counter torque mechanism, we ensured adequate tightness of our caps. We irrigated copiously with bacitracin irrigation. We decorticated the transverse process of L5 and the sacral ala bilaterally. Over the decorticated bone, we left demineralized bone matrix and morselized autograft as a posterolateral fusion substrate. We waxed the bone edges and controlled bleeding with gentle bipolar cautery. We tunneled a drain inferiorly through a separate stab incision. We treated the wound with vancomycin powder and we closed the wound in anatomic layers over the drain. It is clean case, no contamination. Job ID: [id number]
[2019-08-10] MEDS: Arformoterol 15 MCG/2 ML NEB NEB SCH (18:45)
[2019-08-10] MEDS: Budesonide 0.5 MG/2 ML NEB NEB SCH (18:46)
[2019-08-10] MEDS: Lisinopril 10 MG TAB PO SCH (20:32)
[2019-08-11] MEDS: tiZANidine HCl 4 MG TAB PO PRN ×2 (00:05→16:27)
[2019-08-11] MEDS: Acetaminophen/Codeine 30-300mg Tablet PO PRN ×4 (00:05→16:27)
[2019-08-11] MEDS: Morphine 2 MG/ML SYRINGE SLOW IVP PRN (02:38)
[2019-08-11] MEDS: CEFAZOLIN 2 GM in Premix Bag 1 BAG IVPB SCH ×3 (05:37→22:01)
[2019-08-11] MEDS: Tamsulosin HCl 0.4 MG CAP PO SCH (05:37)
[2019-08-11] MEDS: Arformoterol 15 MCG/2 ML NEB NEB SCH ×2 (07:21→18:38)
[2019-08-11] MEDS: Budesonide 0.5 MG/2 ML NEB NEB SCH ×2 (07:43→18:39)
[2019-08-11] MEDS: Sodium Chloride 0.9% 1,000 ML IV SCH ×2 (08:18→17:27)
[2019-08-11] MEDS: traMADol HCl 50 MG TAB PO PRN (08:22)
[2019-08-11] MEDS: Cyanocobalamin (Vitamin B-12) 1,000 MCG TAB PO SCH (08:23)
[2019-08-11] MEDS: Vit A,C & E/Lutein/Minerals Tablet PO SCH (08:23)
[2019-08-11] MEDS: Calcium Carbonate 600 MG + Vit D TAB PO SCH (08:23)
[2019-08-11] MEDS: Atorvastatin Calcium 10 MG TAB PO SCH (08:23)
[2019-08-11] MEDS: FLUoxetine HCl 20 MG CAP PO SCH (08:23)
[2019-08-11] MEDS: Multivit, Therapeutic 1 TAB PO SCH (08:23)
[2019-08-11] MEDS: Lisinopril 10 MG TAB PO SCH ×2 (08:24→20:26)
--- NOTE | 2019-08-11 09:34 | PRG ---
DATE OF SERVICE: 08/11/2019 I saw Ms. Dash on rounds this morning. She is one day out from decompression and fusion of lumbar spine. She indeed had quite a large synovial cyst on the right at L5-S1. She had lateral recess stenosis at L4-5. She had a spondylolisthesis at L5-S1. All the neural elements in the lumbar spine have been decompressed. The L5-S1 segment has been stabilized. She sees an improvement in her legs already. Among her electronically recorded vital signs, I do not see any fevers in the last 24 hours. Blood pressures range between the 90s and 120. There is good neurological function in lower extremities. There has been a good amount of drain output from her lumbar wound. Her plan today is to mobilize Ms. Dash. She will use a brace when she is up and walking with physical therapy. The drain will stay in until output is less than 5 mL an hour on average. Once it drops below the threshold, that can be removed. Antibiotics will continue until the drain is out. She hopes to become independent enough to go home rather than to inpatient rehab. Today and tomorrow will give us an idea of whether that is possible. Job ID: [id number]
[2019-08-11] MEDS: Polyethylene Glycol 3350 17 GM Packet PO PRN (13:14)
[2019-08-11] MEDS: Docusate 100 MG CAP PO PRN (13:14)
[2019-08-11] MEDS: Ondansetron PF 4 MG/2 ML Vial IVP PRN (22:29)
[2019-08-12] MEDS: Ondansetron PF 4 MG/2 ML Vial IVP PRN (05:29)
[2019-08-12] MEDS: CEFAZOLIN 2 GM in Premix Bag 1 BAG IVPB SCH ×2 (05:29→13:18)
[2019-08-12] MEDS: Acetaminophen/Codeine 30-300mg Tablet PO PRN (05:33)
[2019-08-12] MEDS: Sodium Chloride 0.9% 1,000 ML IV SCH ×2 (05:38→13:20)
[2019-08-12] MEDS: Tamsulosin HCl 0.4 MG CAP PO SCH (05:38)
[2019-08-12] MEDS: Docusate 100 MG CAP PO PRN (06:29)
[2019-08-12] MEDS: Polyethylene Glycol 3350 17 GM Packet PO PRN (06:29)
[2019-08-12] MEDS: Arformoterol 15 MCG/2 ML NEB NEB SCH ×2 (06:42→18:32)
[2019-08-12] MEDS: Budesonide 0.5 MG/2 ML NEB NEB SCH ×2 (06:44→18:32)
--- NOTE | 2019-08-12 09:32 | PRG ---
DATE OF SERVICE: 08/12/2019 I saw Ms. Dash in her hospital room this morning. She did walk yesterday, but she has been nauseated and has had 2 episodes of emesis. She thinks it is associated with her pain medication. Her legs feel better than before surgery. Her back is sore. Among the electronically recorded vital signs, I do not see any fevers. Her blood pressures have been diastolic between the 90s and 120s. There is good motor strength in the lower extremities. Her drain is still in place and this morning had 80 mL out over 12 hours. Our plan today is to use some Zofran to help control the nausea. We will use mobilization to assess her safety for her activities of daily living. If she is safe and can keep her food down, then she could be discharged perhaps in the afternoon and otherwise tomorrow. She is unsafe and inpatient rehabilitation will help her. Job ID: [id number]
[2019-08-12] MEDS: Multivit, Therapeutic 1 TAB PO SCH (09:57)
[2019-08-12] MEDS: Calcium Carbonate 600 MG + Vit D TAB PO SCH (09:57)
[2019-08-12] MEDS: Vit A,C & E/Lutein/Minerals Tablet PO SCH (09:57)
[2019-08-12] MEDS: Atorvastatin Calcium 10 MG TAB PO SCH (09:58)
[2019-08-12] MEDS: Cyanocobalamin (Vitamin B-12) 1,000 MCG TAB PO SCH (09:58)
[2019-08-12] MEDS: Lisinopril 10 MG TAB PO SCH ×2 (09:58→20:27)
[2019-08-12] MEDS: FLUoxetine HCl 20 MG CAP PO SCH (09:58)
[2019-08-12] MEDS: traMADol HCl 50 MG TAB PO PRN (10:02)
[2019-08-12] MEDS: Acetaminophen 325 MG TAB PO PRN (10:03)
[2019-08-12] MEDS ORDERED: Ondansetron PF 4 MG/2 ML Vial IVP PRN (10:06)
[2019-08-12] MEDS: tiZANidine HCl 4 MG TAB PO PRN (20:37)
[2019-08-13] MEDS: Acetaminophen 325 MG TAB PO PRN (01:34)
[2019-08-13] MEDS: traMADol HCl 50 MG TAB PO PRN (01:34)
[2019-08-13] MEDS: Sodium Chloride 0.9% 1,000 ML IV SCH ×2 (01:48→11:42)
[2019-08-13] MEDS: tiZANidine HCl 4 MG TAB PO PRN (06:07)
[2019-08-13] MEDS: Docusate 100 MG CAP PO PRN (06:07)
[2019-08-13] MEDS: Tamsulosin HCl 0.4 MG CAP PO SCH (06:07)
--- NOTE | 2019-08-13 07:05 | PRG ---
DATE OF SERVICE: 08/13/2019 Ms. Dash is 3 days out from decompression and fusion of lumbar spine. She has some very focal point tenderness and soreness in the upper hamstring on the left side just below the gluteal muscle. This is not radiating down the leg. There is no new numbness or weakness in the legs. In fact, leg pain is better than it was before surgery. The back is sore. She was able to participate in therapy yesterday. She is not getting out of bed and going to the bathroom on her own, however. Among the electronically recorded vital signs, I do not see any fevers. Blood pressure has been between the 90s and 120s. There are no new neurological deficits. I am worried that Ms. Dash is not safe for discharge home. She is not getting in and out of bed on her own and walk into the hallway on her own. I think inpatient rehabilitation is a reasonable idea for her. Hopefully, they can take her today. Job ID: [id number]
[2019-08-13] MEDS: Budesonide 0.5 MG/2 ML NEB NEB SCH ×2 (07:20→18:22)
[2019-08-13] MEDS: Arformoterol 15 MCG/2 ML NEB NEB SCH ×2 (07:23→18:21)
[2019-08-13] MEDS: Vit A,C & E/Lutein/Minerals Tablet PO SCH (07:44)
[2019-08-13] MEDS: Atorvastatin Calcium 10 MG TAB PO SCH (07:44)
[2019-08-13] MEDS: Calcium Carbonate 600 MG + Vit D TAB PO SCH (07:44)
[2019-08-13] MEDS: Lisinopril 10 MG TAB PO SCH (07:45)
[2019-08-13] MEDS: Multivit, Therapeutic 1 TAB PO SCH (07:45)
[2019-08-13] MEDS: FLUoxetine HCl 20 MG CAP PO SCH (07:46)
[2019-08-13] MEDS: Cyanocobalamin (Vitamin B-12) 1,000 MCG TAB PO SCH (07:46)
[2019-08-13] MEDS: Polyethylene Glycol 3350 17 GM Packet PO PRN (07:50)
[2019-08-13] MEDS: Scopolamine 1.5 mg/72 hour Patch TD SCH (12:47)
[2019-08-13 19:51] VITALS: BP 107/54; TEMP 98.2
--- NOTE | 2019-08-14 11:15 | DIS ---
DATE OF ADMISSION: 08/10/2019 DATE OF DISCHARGE: 08/13/2019 HOSPITAL COURSE: Ms. Dash is a 74-year-old female, three days out from decompression and fusion of the lumbar spine. Following surgery, she was transitioned to the med/surg floor, where her pain has been well controlled with p.o. medication. She has tolerated a regular diet and she is voiding appropriately. She is otherwise doing well and ambulating with assistance with physical therapy in the hallways and feel ready to go to inpatient rehab sooner. PHYSICAL EXAMINATION: GENERAL: She is awake and alert, in no acute distress. EXTREMITIES: She has free range of motion in all her extremities. No focal motor weakness. No reflex asymmetry. Her incision is clean, dry, and intact. VITAL SIGNS: Among electronic recorded vital signs, I do not see any fevers. Blood pressures have been between the 90s and 120s. NEUROLOGIC: There are no new neurological deficits. DISPOSITION: We will be planning to dismiss Ms. Dash to inpatient rehab today. CONDITION ON DISCHARGE: The patient had no emergencies. Condition was stable for discharge. MEDICATIONS: Home going medications were reviewed. FOLLOWUP: Follow up arrangements made by our dot compliance coordinator in the clinic and call to the patient. ACTIVITIES: Restrictions were reviewed in person. Wound care and showers are acceptable. The patient should pat the incision dry, but not submerge it under the surface of the body of water for 2 months. Job ID: [id number]
== END 2019-08-13 20:00 | DRG 455 ==
LOC: EDSTATUS 14:05 → SURG A 08-10 05:33 → SURG B 08-10 14:57
PROVIDERS: ADMIT Neurological Surgery; ATTEND Neurological Surgery
PROC: 0SG00AJ Fusion of Lumbar Vertebral Joint with Interbody Fusion Device, Posterior Approach, Anterior Column, Open Approach (ICD-10-PCS; principal; 2019-08-10)
PROC: 0SG3071 Fusion of Lumbosacral Joint with Autologous Tissue Substitute, Posterior Approach, Posterior Column, Open Approach (ICD-10-PCS; 2019-08-10)
PROC: 01NB0ZZ Release Lumbar Nerve, Open Approach (ICD-10-PCS; 2019-08-10)
PROC: 0SB30ZZ Excision of Lumbosacral Joint, Open Approach (ICD-10-PCS; 2019-08-10)
DX: M48.062 Spinal stenosis, lumbar region with neurogenic claudication (principal); M43.16 Spondylolisthesis, lumbar region; M71.30 Other bursal cyst, unspecified site; M54.17 Radiculopathy, lumbosacral region; M43.17 Spondylolisthesis, lumbosacral region; M71.38 Other bursal cyst, other site; F17.210 Nicotine dependence, cigarettes, uncomplicated; F32.9 Major depressive disorder, single episode, unspecified; I10 Essential (primary) hypertension; K21.9 Gastro-esophageal reflux disease without esophagitis; H35.30 Unspecified macular degeneration; J43.9 Emphysema, unspecified; M19.90 Unspecified osteoarthritis, unspecified site; Z85.048 Personal history of other malignant neoplasm of rectum, rectosigmoid junction, and anus; Z90.49 Acquired absence of other specified parts of digestive tract; Z90.710 Acquired absence of both cervix and uterus
CPT/HCPCS: 76000; 85027; 85610; 85730; 87635; 93005; 94640; C1713; C1768; J0171; J0690; J1100; J1885; J2001; J2270; J2370; J2405; J2704; J3010; J3370; J7626; P9045; S0020; U0003

== ENCOUNTER 2019-08-07 06:35 | Outpatient (CLI) | payer MEDICARE, OTHER ==
[2019-08-07 12:22] LABS: Hemoglobin 14.1 g/dL (12.0-16.0); Mean Corpuscular HGB CONC 31.8 g/dL (32.0-36.0); Mean Corpuscular Hemoglobin 31.6 pg (27.0-31.0); Mean Corpuscular Volume 99.2 fL (78.0-98.0); Mean Platelet Volume 10.8 fL (7.4-10.4); Platelet Count 158 thou/uL (130-400); RBC Distribution Width 12.1 % (11.5-14.5); Red Blood Cell (RBC) Count 4.46 mill/uL (4.20-5.40); White Blood Cell (WBC) Count 4.9 thou/uL (4.8-10.8)
[2019-08-07 12:37] LABS: PTT 28.9 SEC (22.9-36.1)
[2019-08-07 12:39] LABS: Prothrombin Time 12.7 sec (12.0-14.7)
[2019-08-07 18:04] LABS: SARS-CoV-2 MS2 Positive; SARS-CoV-2 N Gene Negative; SARS-CoV-2 S Gene Negative; SARS-CoV-2 orf1ab Negative
--- NOTE | 2019-08-07 20:23 | EKG ---
Test Reason : Blood Pressure : / mmHG Vent. Rate : 067 BPM Atrial Rate : 067 BPM P-R Int : 172 ms QRS Dur : 082 ms QT Int : 378 ms P-R-T Axes : 082 066 072 degrees QTc Int : 399 ms Normal sinus rhythm Normal ECG When compared with ECG of 02-APR-2019 12:39, No significant change was found Confirmed by JL PLATA, DR. Pierce ([id number]) on 08/07/2019 8:22:59 PM Referred By: WOO Confirmed By:DR. Stan PARIKH MD
== END 2019-08-07 06:36 | disposition home or self-care (01) ==
LOC: LABBT 06:35
PROVIDERS: ATTEND Neurological Surgery
DX: Z01.818 Encounter for other preprocedural examination (principal); Z11.59 Encounter for screening for other viral diseases; M43.16 Spondylolisthesis, lumbar region; M48.062 Spinal stenosis, lumbar region with neurogenic claudication
CPT/HCPCS: 85027; 85610; 85730; 93005; U0003; 87635; 93010

== ENCOUNTER 2019-10-18 08:30 | Outpatient (CLI) | payer MEDICARE, OTHER ==
--- NOTE | 2019-10-18 08:45 | RAD ---
Lumbar spine 2 views HISTORY: Back surgery. FINDINGS: There are 5 lumbar type vertebrae. Bilateral pedicle screws and vertical rods are in place at the there is 1.3 cm spondylolisthesis at this level. Metallic markers associated with interbody disc material within the confines of the disc space. Vertebral body heights are maintained. Disc space narrowing and osteophytosis at each level. Leftward convex rotatory scoliotic curvature on the frontal view. There is minimal degenerative retrolisthesis at the L1-2, L2-3, and L3-4 levels. Disc space narrowing most pronounced at the L3-4 l evel. Metallic clips overlie the gallbladder fossa. Calcification throughout the arterial structures. IMPRESSION : Postoperative and degenerative changes throughout the lumbar spine as detailed above. Grade 2 spondyl olisthesis at the L5-S1 postoperative level. Atherosclerosis.
== END 2019-10-18 08:31 | disposition home or self-care (01) ==
LOC: TBSIIMAG 08:30
PROVIDERS: ATTEND Neurological Surgery
DX: M43.16 Spondylolisthesis, lumbar region (principal); M47.816 Spondylosis without myelopathy or radiculopathy, lumbar region; M43.17 Spondylolisthesis, lumbosacral region; I70.90 Unspecified atherosclerosis; Z98.890 Other specified postprocedural states
CPT/HCPCS: 72100

== ENCOUNTER 2020-03-17 11:23 | Outpatient (CLI) | payer MEDICARE, OTHER ==
--- NOTE | 2020-03-17 12:45 | MMO ---
Bilateral MAMMO Bilat Screen [facility]. CLINICAL HISTORY: Patient is 74 years old and is seen for screening. The patient has the following family history of breast cancer: maternal aunt and cousin female. The patient has a history of other cancer in 2013. VIEWS: The views performed were: bilateral craniocaudal with tomosynthesis and bilateral mediolateral oblique with tomosynthesis. FILMS COMPARED: The present examination has been compared to prior imaging studies performed at [facility] on 09/24/2014, 10/15/2015, 01/04/2017 and 03/13/2019. This study has been interpreted with the assistance of computer-aided detection. MAMMOGRAM FINDINGS: The breasts are almost entirely fat. There are no suspicious masses, suspicious calcifications, or new areas of architectural distortion. IMPRESSION: THERE IS NO MAMMOGRAPHIC EVIDENCE OF MALIGNANCY. A ROUTINE FOLLOW-UP MAMMOGRAM IN 1 YEAR IS RECOMMENDED. THE RESULTS OF THIS EXAM WERE SENT TO THE PATIENT. ACR BI-RADS Category 1 - Negative MAMMOGRAPHY NOTE: 1. A negative mammogram report should not delay a biopsy if a dominant of clinically suspicious mass is present. 2. Approximately 10% to 15% of breast cancers are not detected by mammography. 3. Adenosis and dense breasts may obscure an underlying neoplasm. Reported by: TREVIN HENDRIX MD Electonically Signed: [id number]
== END 2020-03-17 11:24 | disposition home or self-care (01) ==
LOC: BICMAMMO 11:23
PROVIDERS: ATTEND Family Medicine
DX: Z12.31 Encounter for screening mammogram for malignant neoplasm of breast (principal); Z80.3 Family history of malignant neoplasm of breast; Z85.89 Personal history of malignant neoplasm of other organs and systems
CPT/HCPCS: 77063; 77067

== ENCOUNTER 2020-07-17 10:59 | Outpatient (CLI) | payer MEDICARE, OTHER ==
[2020-07-17] MEDS ORDERED: Iopamidol-370 76% 500 ML 1 ML ONE (12:06)
== END 2020-07-17 11:00 | disposition home or self-care (01) ==
LOC: BICCT 10:59
PROVIDERS: ATTEND Internal Medicine Medical Oncology
DX: C21.1 Malignant neoplasm of anal canal (principal); R63.4 Abnormal weight loss; J44.9 Chronic obstructive pulmonary disease, unspecified; E04.1 Nontoxic single thyroid nodule; N13.30 Unspecified hydronephrosis; N28.89 Other specified disorders of kidney and ureter; I70.0 Atherosclerosis of aorta; I25.10 Atherosclerotic heart disease of native coronary artery without angina pectoris; I72.8 Aneurysm of other specified arteries; Z90.49 Acquired absence of other specified parts of digestive tract; Z90.710 Acquired absence of both cervix and uterus; M62.551 Muscle wasting and atrophy, not elsewhere classified, right thigh; Z87.891 Personal history of nicotine dependence
CPT/HCPCS: 71260; 74177; Q9967

== ENCOUNTER 2020-09-08 13:18 | Outpatient (CLI) | payer MEDICARE, OTHER | END 2020-09-08 13:19 | disposition home or self-care (01) | LOC: BICULT 13:18 | PROVIDERS: ATTEND Internal Medicine Medical Oncology | DX: E04.1 Nontoxic single thyroid nodule (principal); E07.89 Other specified disorders of thyroid | CPT/HCPCS: 76536 ==

== ENCOUNTER 2020-09-17 12:11 | Day surgery (SDC) | payer MEDICARE, OTHER ==
[2020-09-17] MEDS ORDERED: Lidocaine 1% PF 5 ML VIAL ONE (13:06)
[2020-09-17] MEDS ORDERED: Sodium Bicarbonate 2.5 MEQ/5 ML VIAL ONE (13:06)
[2020-09-17 13:15] VITALS: BP 111/53; TEMP 97.9
== END 2020-09-17 13:45 | disposition home or self-care (01) ==
LOC: ULT 12:11
PROVIDERS: ATTEND Internal Medicine Medical Oncology
PROC: 0G9G3ZX Drainage of Left Thyroid Gland Lobe, Percutaneous Approach, Diagnostic (ICD-10-PCS; principal; 2020-09-17)
DX: E04.1 Nontoxic single thyroid nodule (principal); J43.9 Emphysema, unspecified; E11.9 Type 2 diabetes mellitus without complications; I10 Essential (primary) hypertension; E78.5 Hyperlipidemia, unspecified; C21.0 Malignant neoplasm of anus, unspecified; F17.210 Nicotine dependence, cigarettes, uncomplicated; Z79.899 Other long term (current) drug therapy; Z88.5 Allergy status to narcotic agent
CPT/HCPCS: 60100; 76942; 88173

== ENCOUNTER 2020-11-14 08:37 | Outpatient (CLI) | payer MEDICARE, OTHER ==
[2020-11-14 10:28] LABS: Anion Gap 14 mmol/L (10-20); BUN (Urea Nitrogen) 19 mg/dL (9.8-20.1); Calc. Creatinine Clearance 0 mL/min (70-130); Calcium 10.7 mg/dL (7.8-10.44); Carbon Dioxide 30 mmol/L (23-31); Chloride 101 mmol/L (98-107); Glucose 93 mg/dL (83-110); Potassium 4.5 mmol/L (3.5-5.1); Sodium 140 mmol/L (136-145)
[2020-11-15 01:29] LABS: SARS-CoV-2 PCR by NAA Not Detected (NotDetected)
== END 2020-11-14 08:38 | disposition home or self-care (01) ==
LOC: LABBT 08:37
PROVIDERS: ATTEND Neurological Surgery
DX: Z01.818 Encounter for other preprocedural examination (principal); I72.9 Aneurysm of unspecified site; Z20.822 Contact with and (suspected) exposure to COVID-19
CPT/HCPCS: 80048; 93005; U0003; U0005; 93010

== ENCOUNTER → 2020-11-19 | Day surgery (SDC) | payer MEDICARE, OTHER ==
[2020-11-18 12:52] VITALS: BMI 21.9
[~2020-11-19] MED LIST changes: -Dexamethasone 20 MG/5 ML VIAL ONE; -Esmolol 100 MG/10 ML VIAL ONE; -Glycopyrrolate 0.2 MG/ML 5 ML SYRINGE ONE; +Heparin 10,000 UNITS/ 10 ML VIAL ONE; +Iopamidol 370 76% 100 ML VIAL ONE; +Lidocaine 1% (PF) 30 ML VIAL ONE; -Lidocaine 1% PF 5 ML VIAL ONE; -Metoclopramide HCl 10 MG/2 ML VIAL ONE; -Ondansetron PF 4 MG/2 ML Vial ONE; -PHENYLEPHRINE-NS 100 MCG/ML 10 ML SYRINGE ONE; -PROPOFOL 200 MG/20 ML VIAL ONE; -Rocuronium Bromide 10 MG/ML (10ML VIAL) ONE
== END ==
LOC: SDC 08:21
PROVIDERS: ATTEND Neurological Surgery
PROC: B31F1ZZ Fluoroscopy of Left Vertebral Artery using Low Osmolar Contrast (ICD-10-PCS; principal; 2020-11-19)
DX: I67.1 Cerebral aneurysm, nonruptured (principal); I10 Essential (primary) hypertension; J43.9 Emphysema, unspecified; F17.210 Nicotine dependence, cigarettes, uncomplicated; Z85.038 Personal history of other malignant neoplasm of large intestine; Z79.899 Other long term (current) drug therapy; Z88.5 Allergy status to narcotic agent
CPT/HCPCS: 36226; J1644; J2001; Q9967